=== PATIENT | male | born 1990 | race Caucasian/White ===

== ENCOUNTER 2018-09-28 11:35 | Inpatient (IN) | payer OTHER ==
[~2018-09-28] VITALS: Ht 172.7 cm; Wt 81.7 kg
[2018-09-28 11:42] VITALS: Ht 172.7 cm; Wt 81.7 kg
[2018-09-28 12:21] LABS: microscopic required? NO
[2018-09-28 12:26] LABS: BASOPHIL % 0.3 % (0-2); PLATELET COUNT 290 x10^3mcL (130-400)
[2018-09-28 12:28] LABS: RED CELL DISTRIBUTION WIDTH 14.8 % (11.5-14.5)
[2018-09-28 12:47] LABS: urine erythrocyte NEGATIVE (NEGATIVE)
[2018-09-28 12:56] LABS: ALKALINE PHOSPHATASE 132 U/L (46-116); ALT/SGPT 41 U/L (16-63); AST/SGOT 19 U/L (15-37); CALCIUM 8.7 mg/dL (8.5-10.1); CARBON DIOXIDE 22.9 mmol/L (21-32); CHLORIDE SERUM 92 mmol/L (98-107); CREATININE SERUM 0.9 mg/dL (0.7-1.3); GFR1 > 60 mL/min; POTASSIUM SERUM 3.1 mmol/L (3.5-5.1); SODIUM SERUM 130 mmol/L (136-145)
[2018-09-28 12:57] LABS: ALBUMIN 5.4 g/dL (3.4-5.0)
[2018-09-28 13:10] LABS: GLUCOSE SERUM 121 mg/dL (74-106)
[2018-09-28] MEDS ORDERED: LACTULOSE10 GM/152 PO (14:42)
[2018-09-28] MEDS ORDERED: BEN20 PO (14:43)
[2018-09-28] MEDS ORDERED: COLACE100 MG PO (14:43)
[2018-09-28] MEDS ORDERED: TRILEPTAL600 MG PO (14:44)
[2018-09-28 15:15] VITALS: BP 150/91
[2018-09-28 15:30] VITALS: BP 150/91
[2018-09-28 20:56] VITALS: BP 136/82
[2018-09-29 05:54] VITALS: BP 121/62
[2018-09-29 07:24] LABS: CALCIUM 9.4 mg/dL (8.5-10.1); CARBON DIOXIDE 27.5 mmol/L (21-32); CHLORIDE SERUM 99 mmol/L (98-107); CREATININE SERUM 0.7 mg/dL (0.7-1.3); GFR1 > 60 mL/min; GLUCOSE SERUM 93 mg/dL (74-106); POTASSIUM SERUM 4.7 mmol/L (3.5-5.1); SODIUM SERUM 137 mmol/L (136-145)
[2018-09-29 07:45] LABS: BASOPHIL % 0.1 % (0-2); PLATELET COUNT 232 x10^3mcL (130-400); RED CELL DISTRIBUTION WIDTH 15.1 % (11.5-14.5)
[2018-09-29 08:18] VITALS: BP 121/72
[2018-09-29 12:04] VITALS: BP 127/79
[2018-09-29 15:07] VITALS: BP 122/72
[2018-09-29 21:30] VITALS: BP 126/70
[2018-09-30 06:06] VITALS: BP 112/71
[2018-09-30 06:24] LABS: BASOPHIL % 0.8 % (0-2); PLATELET COUNT 174 x10^3mcL (130-400)
[2018-09-30 06:55] LABS: RED CELL DISTRIBUTION WIDTH 15.3 % (11.5-14.5)
[2018-09-30 06:56] LABS: CALCIUM 8.7 mg/dL (8.5-10.1); CARBON DIOXIDE 31.7 mmol/L (21-32); CHLORIDE SERUM 102 mmol/L (98-107); CREATININE SERUM 0.8 mg/dL (0.7-1.3); GFR1 > 60 mL/min; GLUCOSE SERUM 83 mg/dL (74-106); POTASSIUM SERUM 4.2 mmol/L (3.5-5.1); SODIUM SERUM 139 mmol/L (136-145)
[2018-09-30 09:14] VITALS: BP 117/78
[2018-09-30 12:41] VITALS: BP 124/73
[2018-09-30 17:30] VITALS: BP 124/80
[2018-09-30 20:27] VITALS: BP 129/80
[2018-10-01 05:21] VITALS: BP 116/76
[2018-10-01 09:00] VITALS: BP 131/68
[2018-10-01 12:53] VITALS: BP 125/69
[2018-10-01 13:22] VITALS: BP 125/69
== END 2018-10-01 18:37 | disposition other institution (70) | DRG 392 ==
LOC: ED 11:35 → MU 13:41 → DU 13:41 → MU 14:49 → DU 09-29 01:11
PROVIDERS: Emergency Medicine; Internal Medicine Gastroenterology; ADMIT Internal Medicine
PROC: 0DJD8ZZ Inspection of Lower Intestinal Tract, Via Natural or Artificial Opening Endoscopic (ICD-10-PCS; principal; 2018-10-01 08:00)
DX: K59.00 Constipation, unspecified (principal); E87.1 Hypo-osmolality and hyponatremia; E87.2 Acidosis; I47.1 Supraventricular tachycardia; K50.90 Crohn's disease, unspecified, without complications; J45.909 Unspecified asthma, uncomplicated; F32.9 Major depressive disorder, single episode, unspecified; E87.6 Hypokalemia; F39 Unspecified mood [affective] disorder; R00.1 Bradycardia, unspecified
CPT/HCPCS: 45378; C9113; J1200; J1610; J2250; J2270; J2310; J2405; J2550; J2930; J3010; J3475; J3480; J3490; J7030; J7050; J7626